=== PATIENT | female | born 1985 | race American Indian/Alaskan Native ===

== ENCOUNTER 2019-05-28 01:54 | Emergency (ER) | payer SELFPAY ==
[2019-05-28 03:32] LABS: Basophils % (Auto) 0.2 % (0.0-1.8); Eosinophils # (Auto) 0.4 K/mm3 (0.0-0.4); Eosinophils % (Auto) 3.6 % (0.0-4.3); Hematocrit 36.3 % (30.3-42.9); Hemoglobin 11.9 gm/dl (10.1-14.3); Lymphocytes # (Auto) 2.3 K/mm3 (1.2-5.4); Lymphocytes % (Auto) 22.7 % (13.4-35.0); Mean Corpuscular HGB Conc 33 % (30-34); Mean Corpuscular Volume 82 fl (79-97); Monocytes # (Auto) 0.8 K/mm3 (0.0-0.8); Monocytes % (Auto) 7.6 % (0.0-7.3); Platelet Count 250 K/mm3 (140-440); Red Cell Distribution Width 14.5 % (13.2-15.2)
[2019-05-28 03:56] LABS: Alanine Aminotransferase 11 units/L (7-56); Albumin 3.6 g/dL (3.9-5); BUN/Creatinine Ratio 9; Blood Urea Nitrogen 6 mg/dL (7-17); Hemolysis Index 1
[2019-05-28 04:02] LABS: Bacteria,Urine 1+ /HPF (Negative); Bilirubin,Urine NEG (Negative); Blood,Urine SM (Negative); Color,Urine Straw (Yellow); Mucus,Urine FEW /HPF; Protein,Urine <15 mg/dL mg/dL (Negative); Urobilinogen,Urine < 2.0 mg/dL (<2.0)
[2019-05-28] MEDS ORDERED: KETOROLAC 30 MG/1 ML INJ IV ONE (09:16)
[2019-05-28] MEDS ORDERED: SODIUM CHLORIDE 0.9% 1000 ML 1,000 ML IV ONE (09:17)
--- NOTE | 2019-05-28 09:29 | Emergency Department Report ---
ED Abdominal Pain HPI - General Chief Complaint: Abdominal Pain Stated Complaint: ABDOMINAL PAIN Source: patient, EMS Mode of arrival: Ambulatory Limitations: Other - History of Present Illness Complaint: abdominal pain, flank pain, other Location: diffuse, bilateral flank Radiation: none Consistency: intermittent Improves With: nothing Worsens With: nothing Associated Symptoms: vomiting. denies: diarrhea, fever, chills, constipation, hematuria Treatments Prior to Arrival: NSAIDs - Related Data Allergies Allergy/AdvReac Type Severity Reaction Status Date / Time latex Allergy Hives Verified 05/28/19 02:58 ED Review of Systems ROS: Stated complaint: ABDOMINAL PAIN Other details as noted in HPI Comment: All other systems reviewed and negative ENT: throat pain Respiratory: cough Gastrointestinal: abdominal pain, vomiting. denies: diarrhea, constipation ED Past Medical Hx - Past Medical History Previous Medical History?: No - Surgical History Past Surgical History?: No - Social History Smoking Status: Never Smoker Substance Use Type: None ED Physical Exam - General Limitations: Other (Deaf) General appearance: alert, in no apparent distress - Head Head exam: Present: atraumatic - Eye Eye exam: Present: PERRL. Absent: scleral icterus - ENT ENT exam: Present: TM's normal bilaterally, other (enlarged right tonsil with exduate) - Neck Neck exam: Present: normal inspection - Respiratory Respiratory exam: Present: normal lung sounds bilaterally. Absent: respiratory distress - Cardiovascular Cardiovascular Exam: Present: regular rate, normal rhythm - GI/Abdominal GI/Abdominal exam: Present: soft, tenderness (diffuse tenderness,), normal bowel sounds. Absent: distended, guarding - Rectal Rectal exam: Present: deferred - Back Exam Back exam: Present: normal inspection, CVA tenderness (R), CVA tenderness (L) - Neurological Exam Neurological exam: Present: alert, oriented X3 - Psychiatric Psychiatric exam: Present: normal affect ED Course Vital Signs 05/28/19 05/28/19 05/28/19 02:18 10:00 11:38 Temperature 98.2 F 97.7 F Pulse Rate 98 H 74 69 Respiratory 20 16 15 Rate Blood Pressure 115/70 Blood Pressure 127/77 108/56 [Left] O2 Sat by Pulse 98 99 98 Oximetry - Reevaluation(s) Reevaluation #1: 05/28/19 13:16 Resting comfortably ED Medical Decision Making - Lab Data Result diagrams: 05/28/19 03:12 05/28/19 03:12 - Radiology Data Radiology results: report reviewed CT ABDOMEN AND PELVIS WITHOUT CONTRAST INDICATION / CLINICAL INFORMATION: Bilateral flank pain. TECHNIQUE: Axial CT images were obtained through the abdomen and pelvis without IV contrast. All CT scans at this location are performed using CT dose reduction for ALARA by means of automated exposure control. COMPARISON: None available. FINDINGS: LOWER CHEST: No significant abnormality. LIVER: No significant abnormality. GALLBLADDER: Surgically absent. BILE DUCTS: No significant abnormality. PANCREAS: No significant abnormality. SPLEEN: No significant abnormality. ADRENALS: No significant abnormality. RIGHT KIDNEY and URETER: No significant abnormality. LEFT KIDNEY and URETER: No significant abnormality. STOMACH and SMALL BOWEL: No significant abnormality. COLON: No significant abnormality. APPENDIX: No significant abnormality. PERITONEUM: No free fluid. No free air. No fluid collection. A surgical clip in the pelvis just below the right ovary was probably dropped during cholecystectom - Medical Decision Making 34-year-old deaf female she complains of 2 days of bilateral flank pain and diffuse abd. pain off and on. She also complains of coughing sore throat unable to sleep. She's had 1 or 2 episodes of vomiting. She denies diarrhea no fever or chills. Patient received a liter of normal saline bolus and 30 mg of Toradol IV. She has been comfortable throughout her stay. Her lab results are with no acute findings CAT scan of her abdomen and pelvis reveals no stones and no other abnormalities. Rapid strep is negative. All findings reviewed and discussed with the patient. Critical care attestation.: If time is entered above; I have spent that time in minutes in the direct care of this critically ill patient, excluding procedure time. ED Disposition Clinical Impression: Bilateral flank pain URI (upper respiratory infection) Qualifiers: URI type: unspecified URI Qualified Code(s): J06.9 - Acute upper respiratory infection, unspecified Disposition: - TO HOME OR SELFCARE Is pt being admited?: No Does the pt Need Aspirin: No Condition: Stable Instructions: Abdominal Pain (ED) Additional Instructions: Follow up with your doctor in 2-3 days. Rest hydrate self. Continue with cold and cough medication you purchased take as directed by package insert. Return to the ER for worsening symptoms such as fever and increasing pain. The cat scan of your abdomen and pelvis had no abnormal findings. Referrals: PRIMARY CARE, [Primary Care Provider] - 3-5 Days Time of Disposition: 13:20
--- NOTE | 2019-05-28 12:23 | Cat Scan Report ---
CT ABDOMEN AND PELVIS WITHOUT CONTRAST INDICATION / CLINICAL INFORMATION: Bilateral flank pain. TECHNIQUE: Axial CT images were obtained through the abdomen and pelvis without IV contrast. All CT scans at [facility] location are performed using CT dose reduction for ALARA by means of automated exposure control. COMPARISON: None available. FINDINGS: LOWER CHEST: No significant abnormality. LIVER: No significant abnormality. GALLBLADDER: Surgically absent. BILE DUCTS: No significant abnormality. PANCREAS: No significant abnormality. SPLEEN: No significant abnormality. ADRENALS: No significant abnormality. RIGHT KIDNEY and URETER: No significant abnormality. LEFT KIDNEY and URETER: No significant abnormality. STOMACH and SMALL BOWEL: No significant abnormality. COLON: No significant abnormality. APPENDIX: No significant abnormality. PERITONEUM: No free fluid. No free air. No fluid collection. A surgical clip in the pelvis just below the right ovary was probably dropped during cholecystectomy. LYMPH NODES: No adenopathy. AORTA and ARTERIES: No significant abnormality. IVC and VEINS: No significant abnormality. URINARY BLADDER: Empty. The collapsed state limits evaluation. REPRODUCTIVE ORGANS: No significant abnormality. ADDITIONAL FINDINGS: None. SKELETAL SYSTEM: No significant abnormality. IMPRESSION: 1. No acute abnormality. Signer Name: Jaiden Mcgrath MD Signed: 05/28/2019 12:19 PM Workstation Name: [id number]
[2019-05-28 13:27] VITALS: BP 118/78
== END 2019-05-28 13:28 | disposition home or self-care (01) ==
LOC: ED 01:54
DX: R10.84 Generalized abdominal pain (principal); R11.10 Vomiting, unspecified; J06.9 Acute upper respiratory infection, unspecified; Z91.040 Latex allergy status
CPT/HCPCS: 36415; 74176; 80053; 81001; 84703; 85025; 87116; 87430; 96361; 96374; 99284; J1885; J7030